=== PATIENT | female | born 1970 | race Caucasian/White ===

== ENCOUNTER → 2024-05-09 11:43 | Outpatient (REF) | payer OTHER, SELFPAY | LOC: RAD 11:43 | PROVIDERS: ATTENDING PHYSICIAN Physician Assistant; FAMILY PHYSICIAN Family Medicine | DX: M25.551 Pain in right hip (principal); Z96.642 Presence of left artificial hip joint | CPT/HCPCS: 73522 ==

== ENCOUNTER → 2024-06-18 17:25 | Outpatient (REF) | payer OTHER, SELFPAY | LOC: RAD 17:25 | PROVIDERS: ATTENDING PHYSICIAN Orthopaedic Surgery Hand Surgery; FAMILY PHYSICIAN Family Medicine | DX: S83.92XA Sprain of unspecified site of left knee, initial encounter (principal) | CPT/HCPCS: 73564 ==

== ENCOUNTER → 2024-06-20 09:32 | Outpatient (REF) | payer OTHER, SELFPAY | LOC: RAD 09:32 | PROVIDERS: ATTENDING PHYSICIAN Radiology Diagnostic Radiology; FAMILY PHYSICIAN Family Medicine | DX: R06.02 Shortness of breath (principal) | CPT/HCPCS: 71100 ==

== ENCOUNTER → 2024-07-03 13:35 | Outpatient (REF) | payer OTHER, SELFPAY | LOC: MRI 3T 13:35 | PROVIDERS: ATTENDING PHYSICIAN Nurse Practitioner Adult Health | DX: S46.011A Strain of muscle(s) and tendon(s) of the rotator cuff of right shoulder, initial encounter (principal) | CPT/HCPCS: 73221 ==

== ENCOUNTER 2025-04-17 06:12 | Day surgery (SDC) | payer OTHER, SELFPAY ==
[2025-04-17] VITALS (9 sets, daily range): BP systolic 94–136; BP diastolic 60–94; BMI 22.1
[2025-04-17] MEDS: CELEBREX 200 MG PO (08:01)
[2025-04-17] MEDS: TYLENOL 1000 MG PO (08:01)
[2025-04-17] MEDS: NORMOSOL-R/PLASMALYTE-A 1000 IV (08:20)
[2025-04-17] MEDS: ROXICODONE 5 MG PO (11:29)
== END 2025-04-17 11:55 | disposition home or self-care (01) ==
LOC: SDS 06:12
PROVIDERS: ATTENDING PHYSICIAN Specialist; FAMILY PHYSICIAN Family Medicine
DX: M75.101 Unspecified rotator cuff tear or rupture of right shoulder, not specified as traumatic (principal); M75.41 Impingement syndrome of right shoulder
CPT/HCPCS: 29827; 93005